=== PATIENT | male | born 1970 | race Caucasian/White ===

== ENCOUNTER 2016-09-02 23:28 | Inpatient (IN) ==
[2016-09-02] MEDS ORDERED: D50W SYRINGE ONE (23:42)
[2016-09-02] MEDS ORDERED: D50W SYRINGE IV ONE (23:46)
[2016-09-02 23:55] LABS: MANUAL DIFF NEEDED? NO
[2016-09-02 23:57] LABS: BASO% 0.2 % (0.0-0.8); EOS# 0.24 X1000 (0.0-0.7); HEMATOCRIT 44.7 % (42.0-52.0); HEMOGLOBIN 15.8 g/dL (14.0-18.0); IMM GRAN# 0.02 X1000 (0.0-0.04); IMM GRAN% 0.2 % (0.0-0.5); LYMPH# 2.96 X1000 (1.2-3.4); LYMPH% 36.6 % (20.5-51.1); MCH 30.6 PG (27-31); MCHC 35.3 g/dL (33-37); MCV 86.5 FL (81-99); MONO# 0.85 X1000 (0.11-0.59); MONO% 10.5 % (1.7-9.3); MPV 11.7 FL (7.4-10.4); NEUT% 49.5 % (42.2-75.2); PLT 163 X1000 (130-400); RBC 5.17 XMIL (4.7-6.1)
--- NOTE | 2016-09-02 23:58 | PROVIDER DOCUMENTATION ---
HPI-General Adult - General Chief Complaint: Stroke-Like Symptoms Stated Complaint: GENERAL Time Seen by Provider: 09/02/16 23:45 Source: patient, other (girlfriend) Allergies/Adverse Reactions: Patient Allergies Allergy/AdvReac Type Severity Reaction Status Date / Time No Known Allergies Allergy Verified 09/02/16 23:44 Home Medications: Home Medication List Medication Instructions Recorded Confirmed Last Taken Type No Home Medications 09/02/16 09/02/16 Unknown History - History of Present Illness -Gen Adult Nature of Presenting Problems: Pt is a 46 yom who presents to ER via EMS after experiencing stroke like symptoms. Pt's girlfriend reports that at approximately 2130, pt began to feel weak, got up to go to the bathroom and stumbled on his way, and girlfriend then noticed pt had mild L facial droop and called EMS. Pt reports that he is a recovering alcoholic and goes to AA meeting regularly. On exam, pt was also hypoglycemic (blood sugar of 60). Location of Pain/Injury: reports: face (L facial numbness) Pain Radiation: reports: arm(s) (L arm) Quality of Pain: reports: other (numbness) Severity: reports: severe Onset/Duration: reports: 1-3 hours ago Timing: reports: still present, improving Context/Activities at Onset: reports: light activity Associated Symptoms: reports: arm pain (L arm numbness), dizziness, fatigue, sensory/motor loss (L facial numbness; L arm numbness), weakness, trouble walking. denies: anxiety, back/neck pain, chest pain, constipation, cough, diaphoresis, diarrhea, EENT symptoms, fever/chills, genitourinary problems, headaches, heartburn, joint pain, loss of appetite, malaise, muscle aches, sinus congestion/drainage, nausea, rash, seizure, shortness of breath, pain with inspiration, swelling/mass in abdomen, syncope (near-syncope), vomiting Review of Systems - Adult - REVIEW OF SYSTEMS - ADULT Constitutional: reports: mariel. denies: chills, fever, night sweats, weight gain, weight loss Eyes: reports: no symptoms reported Ears, Nose, Mouth & Throat: reports: no symptoms reported Cardiovascular: denies: chest pain, edema, heart murmur, irregular heart rate, orthopnea, palpitations, poor circulation, PND, syncope Respiratory: denies: chronic cough, cough, dyspnea on exertion, excessive sputum production, hemoptysis, pleurisy, shortness of breath, wheezing Gastrointestinal: denies: abdominal pain, hematemesis, constipation, diarrhea, difficulty swallowing, frequent heartburn, nausea, poor appetite, rectal bleeding, vomiting Genitourinary: reports: no symptoms reported Musculoskeletal: reports: muscle weakness. denies: bone pain, back pain, frequent leg cramps, joint pain, joint swelling, muscle aches, neck pain Integumentary: reports: no symptoms reported Neurological: reports: dizziness/vertigo, numbness (L facial; L arm), slurred speech. denies: ataxia, headache/migraines, loss of balance, paresthesia, seizure, syncope (near-syncope), tremors Psychiatric: reports: no symptoms reported Endocrine: reports: no symptoms reported Hematologic/Lymphatic: reports: no symptoms reported Allergic/Immunologic: reports: no symptoms reported All Other Systems: Reviewed and Negative Past History - Adult - PAST MEDICAL HISTORY-ADULT Review of Records: reports: Nursing Assessment Review, Medications Reviewed - IMMUNIZATION STATUS Childhood Immunizations: See Nurse Assessment Flu Vaccine: See Nurse Assessment Physical Exam-General - PHYSICAL EXAM-ADULT Initial Vital Signs Reviewed: Yes - CONSTITUTIONAL General Appearance: alert, moderate distress, lethargic. negative: appears well , no apparent distress, mild distress, severe distress, cachetic, obese, thin, anxious, slow to respond, obtunded, combative - RESPIRATORY Respiratory: chest non-tender, lungs clear, normal breath sounds. negative: respiratory distress, decreased breath sounds, accessory muscle use, wheezing - CARDIOVASCULAR Cardiovascular: normal peripheral pulses, bradycardia (mild (56)). negative: regular rate, rhythm, irregularly irregular - GASTROINTESTINAL (ABDOMEN) Abdominal Exam: normal bowel sounds, non tender, soft. negative: abnormal bowel sounds, distended, tenderness, mass - NEUROLOGIC Neurologic: grossly normal, no motor/sensory deficits, facial droop (L facial droop), sensory deficit (L face numb; L arm numb). negative: focal weakness, motor weakness - PSYCHIATRIC Psych/Mental Status: normal thought content, normal thought process, oriented x 3, disheveled, depressed affect. negative: normal mood/affect, disoriented x 3 , anxious, paranoid, tearful Progress - PLAN OF CARE/RESULTS Progress/Plan/Lab Results: POC: CT Vital Signs - 24 hr 09/02/16 09/03/16 23:31 00:07 Temperature 97.1 F L Pulse Rate 60 60 Respiratory 20 14 Rate Blood Pressure 142/89 150/91 O2 Sat by Pulse 98 96 Oximetry Orders Category Date Time Status Cardiac Monitoring DIRECTED Care 09/02/16 23:47 Active Misc. NRSG Communication Order DIRECTED Care 09/02/16 23:47 Active CHEST-PORTABLE [RAD] Stat Exams 09/02/16 23:47 Taken HEAD W/O CONTRAST [CT] Stat Exams 09/02/16 23:35 Taken CBC WITH ELECTRONIC DIFF [HEME] Stat Lab 09/02/16 23:46 Completed COMPREHENSIVE METABOLIC PANEL [CHEM] Stat Lab 09/02/16 23:46 Completed PROTIME WITH INR [COAG] Stat Lab 09/02/16 23:46 Completed PTT [COAG] Stat Lab 09/02/16 23:46 Completed TROPONIN T Stat Lab 09/02/16 23:46 Completed URINALYSIS W/POSS RFLX CULT [URINALYSIS] Stat Lab 09/03/16 00:14 Completed URINE DRUG SCREEN Stat Lab 09/03/16 00:14 Completed Aspirin Med 09/03/16 00:25 Discontinued 325 mg PO NOW ONE Dextrose 50% Syringe [D50w Syringe] Med 09/02/16 23:42 Discontinued 50 ml .ROUTE .STK-MED ONE Dextrose 50% Syringe [D50w Syringe] Med 09/02/16 23:46 Discontinued 50 ml IV NOW ONE EKG [EKG] Stat Ther 09/02/16 23:34 Ordered Laboratory Tests 09/02/16 09/02/16 09/02/16 23:38 23:46 23:46 WBC RBC Hgb Hct MCV MCH MCHC RDW Std Deviation Plt Count MPV Immature Gran % (Auto) Neut % (Auto) Lymph % (Auto) [place] % (Auto) Eos % (Auto) Baso % (Auto) Immature Gran # (Auto) Neut # (Auto) Lymph # (Auto) [place] # (Auto) Eos # (Auto) Baso # (Auto) PT INR PTT (Actin FS) Sodium 138 Potassium 3.5 Chloride 100 Carbon Dioxide 25 Anion Gap 13 BUN 14 Creatinine 0.8 Estimated GFR/1.73 m2 > 60 BUN/Creatinine Ratio 18 Glucose 94 POC Glucose 60 L Calculated Osmolality 276 Calcium 8.7 L Total Bilirubin 0.38 AST 53 H ALT 84 H Alkaline Phosphatase 103 Troponin T < 0.010 Total Protein 6.5 Albumin 4.1 Globulin 2.4 Albumin/Globulin Ratio 1.7 Urine Source Urine Color Urine Turbidity Urine pH Ur Specific [place] Urine Protein Ur Glucose (Stick) Ur Ketones (Stick) Urine Blood Urine Nitrite Urine Bilirubin Urobilinogen Dipstick Urine Leukocytes Urine WBC (Auto) Urine RBC (Auto) U Epithel Cells (Auto) Urine Bacteria (Auto) Urine Opiates Screen Ur Oxycodone Screen Ur Methadone, Qual Ur Barbiturates Screen Ur Phencyclidine Scrn Ur Amphetamines Screen U Benzodiazepines Scrn Urine Cocaine Screen U Cannabinoids Screen 09/02/16 09/02/16 09/03/16 23:46 23:46 00:14 WBC 8.09 RBC 5.17 Hgb 15.8 Hct 44.7 MCV 86.5 MCH 30.6 MCHC 35.3 RDW Std Deviation 13.5 Plt Count 163 MPV 11.7 H Immature Gran % (Auto) 0.2 Neut % (Auto) 49.5 Lymph % (Auto) 36.6 [place] % (Auto) 10.5 H Eos % (Auto) 3.0 Baso % (Auto) 0.2 Immature Gran # (Auto) 0.02 Neut # (Auto) 4.00 Lymph # (Auto) 2.96 [place] # (Auto) 0.85 H Eos # (Auto) 0.24 Baso # (Auto) 0.02 PT 10.2 INR 0.96 PTT (Actin FS) 27.9 Sodium Potassium Chloride Carbon Dioxide Anion Gap BUN Creatinine Estimated GFR/1.73 m2 BUN/Creatinine Ratio Glucose POC Glucose Calculated Osmolality Calcium Total Bilirubin AST ALT Alkaline Phosphatase Troponin T Total Protein Albumin Globulin Albumin/Globulin Ratio Urine Source CLEAN CATCH Urine Color YELLOW Urine Turbidity CLEAR Urine pH 6.5 Ur Specific [place] 1.025 Urine Protein NEGATIVE Ur Glucose (Stick) 1000 A Ur Ketones (Stick) 20 A Urine Blood NEGATIVE Urine Nitrite NEGATIVE Urine Bilirubin NEGATIVE Urobilinogen Dipstick 3 A Urine Leukocytes NEGATIVE Urine WBC (Auto) <10 Urine RBC (Auto) <10 U Epithel Cells (Auto) <10 Urine Bacteria (Auto) NEGATIVE Urine Opiates Screen Ur Oxycodone Screen Ur Methadone, Qual Ur Barbiturates Screen Ur Phencyclidine Scrn Ur Amphetamines Screen U Benzodiazepines Scrn Urine Cocaine Screen U Cannabinoids Screen 09/03/16 09/03/16 00:14 00:53 WBC RBC Hgb Hct MCV MCH MCHC RDW Std Deviation Plt Count MPV Immature Gran % (Auto) Neut % (Auto) Lymph % (Auto) [place] % (Auto) Eos % (Auto) Baso % (Auto) Immature Gran # (Auto) Neut # (Auto) Lymph # (Auto) [place] # (Auto) Eos # (Auto) Baso # (Auto) PT INR PTT (Actin FS) Sodium Potassium Chloride Carbon Dioxide Anion Gap BUN Creatinine Estimated GFR/1.73 m2 BUN/Creatinine Ratio Glucose POC Glucose 103 D Calculated Osmolality Calcium Total Bilirubin AST ALT Alkaline Phosphatase Troponin T Total Protein Albumin Globulin Albumin/Globulin Ratio Urine Source Urine Color Urine Turbidity Urine pH Ur Specific [place] Urine Protein Ur Glucose (Stick) Ur Ketones (Stick) Urine Blood Urine Nitrite Urine Bilirubin Urobilinogen Dipstick Urine Leukocytes Urine WBC (Auto) Urine RBC (Auto) U Epithel Cells (Auto) Urine Bacteria (Auto) Urine Opiates Screen NONE DETECTED Ur Oxycodone Screen NONE DETECTED Ur Methadone, Qual NONE DETECTED Ur Barbiturates Screen NONE DETECTED Ur Phencyclidine Scrn NONE DETECTED Ur Amphetamines Screen NONE DETECTED U Benzodiazepines Scrn NONE DETECTED Urine Cocaine Screen NONE DETECTED U Cannabinoids Screen NONE DETECTED - REASSESSMENT Reassessment #1 Time Reassessed: 00:42 Status: other (Pt reports that his L eye is not back to normal; L side of face is still partially numb; Speech is almost back to complete baseline) - EKG 1 Time of EKG reading by physician:: 23:35 EKG Read and Signed by:: Omid Negrete EKG Interpretation (*Must complete 3 of following elements*): Normal Rate: 62 Rhythm: NSR - CT/MRI 1 CT Study: Head Impression: See EMR Report CT Results: Normal noncontrast head CT - CONSULTS/PCP/HOSPITALIST Notification #1 *Consult/PCP/Hospitalist*: Dr. Redman (Hospitalist) Time Discussed: 00:58 Consult Disposition: Admit Departure - Departure Time of Disposition Order: 00:59 Disposition: ADMITTED INPATIENT 09 Certified Medical Emergency: Emergent Attestation - Scribe Verification/Attestation Scribe:: Ramiro Boles Acting as Scribe for:: Omid Negrete Scribe documention review:: This chart was documented by a scribe and accurately reflects the service the provider performed and the decisions made by the provider.
[2016-09-03 00:17] LABS: INR 0.96; PROTIME 10.2 Seconds (9.2-11.7); PTT 27.9 Seconds (22.0-36.0)
[2016-09-03 00:23] LABS: URINE CULTURE NEEDED? NO; URINE MICRO REVIEW NEEDED? NO; URINE SOURCE CLEAN CATCH
[2016-09-03] MEDS ORDERED: ASPIRIN PO ONE (00:25)
[2016-09-03 00:41] LABS: AGAP 13; ALBUMIN 4.1 g/dL (3.5-5.0); ALKALINE PHOSPHATASE 103 U/L (32-122); BUN 14 mg/dL (8-22); CALCIUM 8.7 mg/dL (8.8-10.2); CHLORIDE 100 mmol/L (98-107); COSMO 276; GOT 53 U/L (10-34); GPT 84 U/L (10-44); POTASSIUM 3.5 mmol/L (3.5-5.1); SODIUM 138 mmol/L (136-145); TCO2 25 mmol/L (25-35); TOTAL BILIRUBIN 0.38 mg/dL (0.20-1.00); TOTAL PROTEIN 6.5 g/dL (6.3-8.3)
[2016-09-03 00:44] LABS: UR AMPHETAMINES QUAL NONE DETECTED (NONE DETECT); UR BARBITUATES QUAL NONE DETECTED (NONE DETECT); UR BENZODIAZEPIN QUAL NONE DETECTED (NONE DETECT); UR CANNABINOIDS QUAL NONE DETECTED (NONE DETECT); UR COCAINE QUAL NONE DETECTED (NONE DETECT); UR METHADONE QUAL NONE DETECTED (NONE DETECT); UR OPIATES QUAL NONE DETECTED (NONE DETECT); UR OXYCODONE QUAL NONE DETECTED (NONE DETECT); UR PCP QUAL NONE DETECTED (NONE DETECT)
[2016-09-03 00:48] LABS: BILIRUBIN URINE NEGATIVE (NEGATIVE); BLOOD URINE NEGATIVE (NEGATIVE); COLOR YELLOW; GLUCOSE URINE 1000 mg/dL (NEGATIVE); LEUKOCYTES URINE NEGATIVE (NEGATIVE); NITRITE URINE NEGATIVE (NEGATIVE); PH URINE 6.5; PROTEIN URINE NEGATIVE (NEGATIVE); SP GRAVITY URINE 1.025; TURBIDITY URINE CLEAR (CLEAR); UR EPITHELIAL CELLS <10 /HPF (<10); URINE BACTERIA NEGATIVE /HPF; URINE RBC <10 /HPF (<10); URINE WBC <10 /HPF (<10); UROBILINOGEN URINE 3 mg/dL (NORMAL)
[2016-09-03] MEDS ORDERED: ZOFRAN IV PRN (05:40)
[2016-09-03 06:14] LABS: MANUAL DIFF NEEDED? NO
[2016-09-03 06:19] LABS: BASO% 0.3 % (0.0-0.8); EOS# 0.28 X1000 (0.0-0.7); EOS% 4.4 % (0.0-10.0); HEMATOCRIT 44.8 % (42.0-52.0); HEMOGLOBIN 15.5 g/dL (14.0-18.0); LYMPH# 2.81 X1000 (1.2-3.4); LYMPH% 43.8 % (20.5-51.1); MCH 30.3 PG (27-31); MCHC 34.6 g/dL (33-37); MCV 87.5 FL (81-99); MONO# 0.64 X1000 (0.11-0.59); MPV 11.9 FL (7.4-10.4); NEUT% 41.5 % (42.2-75.2); PLT 162 X1000 (130-400); RBC 5.12 XMIL (4.7-6.1)
[2016-09-03] MEDS: LOVENOX SUBQ SCH (06:36)
[2016-09-03 06:39] LABS: AGAP 11; BUN 12 mg/dL (8-22); CALCIUM 8.4 mg/dL (8.8-10.2); CHLORIDE 102 mmol/L (98-107); COSMO 275; POTASSIUM 3.8 mmol/L (3.5-5.1); SODIUM 138 mmol/L (136-145); TCO2 25 mmol/L (25-35)
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
--- NOTE | 2016-09-03 07:42 | Diag Imaging Result Document ---
PROCEDURE NAME: CHEST-PORTABLE - 09/02/2016 PORTABLE CHEST: FINDINGS: The lungs are well expanded. The heart is not enlarged. The vessels are not distended. No pneumonia. No pleural effusions identified. IMPRESSION: Negative chest.
--- NOTE | 2016-09-03 07:49 | Diag Imaging Result Document ---
PROCEDURE NAME: HEAD W/O CONTRAST - 09/02/2016 CT BRAIN WITHOUT CONTRAST: TECHNIQUE: Dose-reduction protocol. FINDINGS: No parenchymal hemorrhage. No epidural or subdural hematoma. No subarachnoid hemorrhage. No mass identified on this noncontrasted exam. No hydrocephalus. No sinus opacification. No air fluid levels. IMPRESSION: No hemorrhage. Negative brain CT without contrast. A preliminary report was given at 12:12 a.m.
[2016-09-03] MEDS: ASPIRIN PO SCH (09:58)
--- NOTE | 2016-09-03 15:26 | PROGRESS NOTE ---
DATE: 09/03/2016 SUBJECTIVE: The patient complained having headache and still having the same tingling and numbness on his right face and right side. OBJECTIVE: Vital signs: Blood pressure 114/72, pulse of 56, respiration 18, temperature 97.6 degrees, saturations of 95% room air. General appearance: Well-developed, well-nourished white male in no acute distress. HEENT: Anicteric. Clear conjunctivae. Neck: Supple. No JVD. No bruit. Cardiovascular: S1, S2. Normal rate and rhythm. No murmur, rubs, or gallops. Pulmonary: Clear to auscultation bilaterally. GI: Soft, nontender, nondistended. Normoactive bowel sounds. Musculoskeletal: No clubbing, cyanosis or edema. Neuro exam: Cranial nerves 2- 12 are grossly intact. The patient has mild decreased sensation on the left side his body. Strength equal on both sides. No tongue deviation. LABORATORY: Were reviewing were normal. ASSESSMENT AND PLAN: This is a 46-year-old admitted to the hospital for left side tingling or numbness. Left side tingling and numbness. The CAT scan was negative for any acute process. MRI of the brain is still pending. The patient complains having headache. Most likely the patient is having a complex migraine. However will continue to proceed with MRI of the brain. Will continue supportive care for now. Encourage ambulation. CODE STATUS: The patient is a full code.
--- NOTE | 2016-09-03 17:19 | CONSULTATION ---
DATE OF CONSULTATION: 09/03/2016 CONSULTATION TO: Dr. Feroz Valentine. Thank you very much for asking me to see this very unfortunate 46-year-old male white. DIAGNOSES: 1. Chronic obstructive pulmonary disease. 2. Observed apneas possibly secondary to obstructive sleep apnea versus medications. 3. Previous transient ischemic attack. RECOMMENDATIONS: Order a bronchodilator test as well as supplemental oxygen and I will notify Dr. Covington of his potential need for sleep apnea workup. Will follow closely along with you. HISTORY: Very pleasant 46-year-old male white presents with some shortness of breath, weakness and confusion on the and subsequently he is admitted and I am consulted to assist in his care. The families do observe some apneas although this may be sedative related. He has some snoring also. SOCIAL HISTORY: He is a smoker. He is a recovering drinker. PAST MEDICAL HISTORY: Is positive for COPD, hypertension at home. REVIEW OF SYSTEMS: Are negative on 14 point review. FAMILY HISTORY: Positive for ischemic heart disease as well as hypertension in his father, hypertension in his mother. PHYSICAL EXAMINATION: Vital Signs: This unfortunate male white shows a blood pressure of 114/72 with a pulse of 56, respirations 18, temperature 97.6 degrees. HEENT: Exam reveals no thyromegaly or adenopathy. Pupils are equal and extraocular muscles are intact. Neck: Supple. Chest: Tympanitic, hyperinflated with some prolongation of expiratory phase. There is forced expiratory wheezes. Symmetrical excursions are noted. Cardiac Exam: Reveals a regular rhythm. Abdomen: Soft, nontender. No hepatosplenomegaly. Extremities: Reveal no evidence cyanosis. DATA: The chest radiograph shows some obesity and some hyperinflation. Sodium is 138, potassium 3.8, chloride 102, CO2 25, BUN 12, creatinine 0.7, glucose 91. White count 6200 with a hemoglobin 14.5, hematocrit of 44.8, platelets 162,000. IMPRESSION: 1. Chronic obstructive pulmonary disease. 2. Obstructive sleep apnea likely. 3. Possible sedative worsening of this. 4. Substance abuse. 5. Transient ischemic attack. As mentioned above will give him bronchodilators, supplemental oxygen and determine whether polysomnography is necessary.
[2016-09-04 06:28] LABS: MANUAL DIFF NEEDED? NO
[2016-09-04] MEDS: LOVENOX SUBQ SCH (06:46)
[2016-09-04 06:51] LABS: AGAP 10; BUN 10 mg/dL (8-22); CALCIUM 8.3 mg/dL (8.8-10.2); CHLORIDE 104 mmol/L (98-107); COSMO 276; POTASSIUM 4.3 mmol/L (3.5-5.1); SODIUM 139 mmol/L (136-145); TCO2 25 mmol/L (25-35)
[2016-09-04 06:59] LABS: BASO% 0.4 % (0.0-0.8); EOS# 0.19 X1000 (0.0-0.7); EOS% 3.6 % (0.0-10.0); HEMATOCRIT 46.9 % (42.0-52.0); HEMOGLOBIN 15.9 g/dL (14.0-18.0); LYMPH# 2.14 X1000 (1.2-3.4); LYMPH% 40.5 % (20.5-51.1); MCH 30.1 PG (27-31); MCHC 33.9 g/dL (33-37); MCV 88.7 FL (81-99); MONO# 0.62 X1000 (0.11-0.59); MONO% 11.7 % (1.7-9.3); MPV 11.8 FL (7.4-10.4); NEUT% 43.8 % (42.2-75.2); PLT 135 X1000 (130-400); RBC 5.29 XMIL (4.7-6.1)
[2016-09-04 08:22] LABS: ALLEN TEST YES; BE 4.1 mmoll (-3.0-3.0); BLOOD TYPE ARTERIAL; DRAW SITE R RADIAL; METHB 1.7 % (0.0-1.5); O2(CT) 21.1 mL/dL (15.0-23.0); PCO2(98.6) 44 mmHg (35-45); PO2(98.6) 83 mmHg (60-100); SAMPLE BLOOD; SAO2 99.1 % (95.0-100.0); THB 16.2 g/dL (11.5-17.4); pH(98.6) 7.43 (7.35-7.45)
[2016-09-04 08:23] LABS: MODALITY ROOM AIR
[2016-09-04] MEDS: ASPIRIN PO SCH (08:23)
--- NOTE | 2016-09-04 09:26 | EKG Report ---
Test Performed on : 09/02/2016 11:35:24 PM Test Reason : STROKE LIKE SYMPTOMS Blood Pressure : / mmHG Vent. Rate : 062 BPM Atrial Rate : 062 BPM P-R Int : 150 ms QRS Dur : 090 ms QT Int : 434 ms P-R-T Axes : 026 002 024 degrees QTc Int : 440 ms Normal sinus rhythm. Normal ECG No previous ECGs available Unconfirmed Result
--- NOTE | 2016-09-04 09:59 | Carotid Study ---
DATE: 09/03/2016 PROCEDURE: Carotid duplex imaging. REFERRING PHYSICIAN: IVANIA Gu INTERPRETING PHYSICIAN: Dr. Valdes TECH: Yvonne Mackenzie RVT INDICATIONS: CVA/stroke (ICD-10 I63.50) OBSERVED DATA RIGHT LEFT Brachial Blood Pressure Carotid Pulse Bruits: Carotid/Sub DIAGRAM OF ULTRASOUND IMAGING R L RIGHT INT EXT INT EXT LEFT Eyad (cm/s) Eyad (cm/s) Subclavian 117/1 Subclavian 117/0 CCA Proximal 114/17 CCA Proximal 101/17 CCA Distal 88/21 CCA Distal 92/15 Bulb 69/16 Bulb 73/17 ICA Proximal 47/15 ICA Proximal 65/21 ICA Mid 60/23 ICA Mid 80/37 ICA Distal 73/29 ICA Distal 67/31 ECA 70/10 ECA 78/9 Vertebral 40/14 Vertebral 51/12 ICA/CCA Ratio 0.64 ICA/CCA Ratio 0.79 % Stenosis 0 to 39 % Stenosis 0 to 39 PHYSICIAN INTERPRETATION: Mild atherosclerotic disease of the distal common and internal carotid arteries bilaterally without evidence of a hemodynamically significant lesion in either carotid system.
--- NOTE | 2016-09-04 11:14 | Diag Imaging Result Document ---
PROCEDURE NAME: MRI BRAIN W W/O CONTRAST - 09/04/2016 MRI OF THE BRAIN: FINDINGS: There is no evidence of mass effect, bleed, or abnormal extra-axial fluid collection. There is no evidence of restricted diffusion. There is a small focus of abnormal gadolinium enhancement in the right temporal tip measuring 4 x 8 mm extending in somewhat a linear fashion. There is no associated edema and this abnormality is only visible on the post gadolinium enhanced T1-weighted images. IMPRESSION: Small abnormal focus of gadolinium enhancement in the right temporal lobe. Otherwise, no evidence of acute disease. Follow-up MRI imaging with and without gadolinium may be desirable to establish the stability or resolution of this finding.
[2016-09-04] MEDS ORDERED: NICODERM PATCH TD PRN (15:11)
--- NOTE | 2016-09-04 15:29 | CONSULTATION ---
DATE OF CONSULTATION: 09/04/2016 HISTORY OF PRESENT ILLNESS: Mr. Reaves is a young man with a recent episode and question of neurologic explanation. 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 He got out of bed quickly, took a few steps, collapsed. He was never unconscious and never had altered awareness or memory gap. Within 10 minutes he was able to get himself up and walk unassisted. He presented to the emergency room. 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 Patient reports a sense of "cloud" over his entire head and a cloud in his vision at home but there was never any focal feature. Patient specifically denies noticing facial drooping or one-sided facial numbness at onset. Today, patient does have slight sense of left-sided facial numbness. There is no previous history of stroke, seizure, other collapse or other neurologic event. He has not had recent head injury. He has a past history of illicit drug use but reports "clean for 9 months." Urine drug screen was all negative this admission. He specifically denies using any illicit substance recently. He does not take any medications. Review of computer record shows nothing remarkable on the lab work. He has been afebrile. Systolic blood pressures have ranged from 100s to 150s. Noncontrast CT of the head was reported unremarkable. On exam, Mr. Reaves is awake, alert, attentive, appropriate, oriented. Speech and language function are intact. Memory is good. Head and neck are unremarkable. Visual sinclair are full tested grossly by confrontational finger counting. Extraocular movements are full. Facial motility is symmetric. He reports equal pinprick and light touch appreciation on careful testing over the face. Gag is intact. Tongue is midline. Hearing is good. Shoulder shrug is equal. Strength is normal in the arms and legs. He did well on [id number] testing bilaterally. I did not test his gait. He reports good proprioception throughout. Sensation is intact on pinprick and light touch testing over the limbs. Reflexes are 1+ at the wrists and ankles symmetrically. Plantar response is silent bilaterally. IMPRESSION: Episode of collapse without definite neurologic explanation. There is report of transient left facial drooping but no other indication of central nervous system events. Negative CT is reassuring but would not exclude acute ischemic stroke. I believe that he has had brain MRI this morning and I will check on that report when available. I do not have any other suggestion right now. Thanks for asking me to see Mr. Reaves. MTDD
--- NOTE | 2016-09-04 17:01 | PROGRESS NOTE ---
DATE: 09/04/2016 SUBJECTIVE: The patient states that he is feeling much better. He is not having any kind of weakness right now. He feels a little bit of numbness on the right cheek, but otherwise he is feeling better. Family members at the bedside. OBJECTIVE: Vital Signs: Temperature 98.2 degrees, pulse 63, respiratory rate 18, blood pressure 118/73, O2 saturation 97% on room air. HEENT: Head normocephalic. No trauma. PERRLA. Neck: Supple. No JVD. No masses. Central trachea. Chest: Clear to auscultation. No wheezing. No rales. Abdomen: Soft, nontender, nondistended. No hepatosplenomegaly. Cardiovascular: RRR. No murmurs. No gallops. No rubs. Extremities: No edema. No clubbing. No cyanosis. Neurological Examination: The patient is alert and oriented x3. No focal neurological deficits. LABORATORY: WBC 5.2, hemoglobin 15.9, hematocrit 46.9, platelets 135,000. Sodium 139, potassium 4.3, chloride 104, bicarbonate 25, BUN 10, creatinine 0.7, glucose 90, hemoglobin A1c 5, calcium 8.3. ASSESSMENT AND PLAN: 1. Transient ischemic attack versus migraine: This patient states that every time he is in a stressful situation he feels some kind of pressure over his head. This is the first time that he has severe symptoms but he was having these kind of symptoms before. Neurology Department is on board. They already evaluated this patient. I do not see any acute abnormality in the CT scan or MRI and the lab work is completely normal. I will wait for the final recommendations of the Neurology Department. Probably this patient can be discharged either today in the afternoon or tomorrow morning. 2. Obstructive sleep apnea. Dr. Covington is on board. Probably this patient needs a sleep study as an outpatient. 3. Tobacco use and abuse. Actually this patient is smoking even during his hospitalization, the last cigarette was today. I have been highly advising this patient about quitting smoking. I will continue with daily cessation education. I will put this patient on a nicotine patch. 4. Transaminitis. AST and LAD are a little bit elevated, we will continue to monitor.
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
[2016-09-04] MEDS: CENTRUM SILVER PO SCH (18:05)
[2016-09-04] MEDS: PROTONIX IV SCH (20:27)
[2016-09-04] MEDS: SODIUM CHLORIDE 0.9% INJ SCH (20:27)
[2016-09-05] MEDS: LOVENOX SUBQ SCH (05:42)
[2016-09-05 06:10] LABS: MANUAL DIFF NEEDED? NO
[2016-09-05 06:15] LABS: BASO% 0.5 % (0.0-0.8); EOS# 0.27 X1000 (0.0-0.7); EOS% 4.8 % (0.0-10.0); HEMATOCRIT 47.2 % (42.0-52.0); HEMOGLOBIN 16.2 g/dL (14.0-18.0); LYMPH# 2.09 X1000 (1.2-3.4); LYMPH% 37.3 % (20.5-51.1); MCH 30.5 PG (27-31); MCHC 34.3 g/dL (33-37); MCV 88.9 FL (81-99); MONO# 0.67 X1000 (0.11-0.59); MPV 11.4 FL (7.4-10.4); NEUT% 45.4 % (42.2-75.2); PLT 142 X1000 (130-400); RBC 5.31 XMIL (4.7-6.1)
[2016-09-05 06:54] LABS: AGAP 8; BUN 14 mg/dL (8-22); CALCIUM 9.2 mg/dL (8.8-10.2); CHLORIDE 105 mmol/L (98-107); COSMO 285; SODIUM 143 mmol/L (136-145); TCO2 30 mmol/L (25-35)
[2016-09-05 07:44] VITALS: BP 123/67
[2016-09-05] MEDS: CENTRUM SILVER PO SCH (08:35)
[2016-09-05] MEDS: ASPIRIN PO SCH (08:36)
[2016-09-05] MEDS: PROTONIX IV SCH (08:36)
[2016-09-05] MEDS: SODIUM CHLORIDE 0.9% INJ SCH (08:36)
[2016-09-05 12:11] LABS: HEPATITIS PROFILE ACUTE SEE COMMENTS (())
--- NOTE | 2016-09-05 12:43 | PROGRESS NOTE ---
DATE: 09/05/2016 SUBJECTIVE: Mr. Reaves has not had any more episodes. He reports left side of the face is feeling more like normal. He reports there is still slight "bruised" sensation across the left face. OBJECTIVE: On careful exam, there is normal facial motility, full extraocular movements, normal eye lid movement, normal forehead wrinkling, and this is all symmetric. He reports equal pinprick and light touch appreciation over the left and right face. Gag is intact. Tongue is midline. We discussed the very uncertain MRI findings. I suggested that he consider having repeat MRI electively, possibly in 3-6 months, sooner if he has more episodes. I will be glad for my office to arrange that scan as an outpatient, if needed. I do not have any other suggestion today. Thanks for asking me to see Mr. Reaves. [facility]
[2016-09-05] MEDS ORDERED: AUGMENTIN PO SCH (21:00)
--- NOTE | 2016-09-06 04:34 | DISCHARGE SUMMARY ---
ADMISSION DATE: 09/03/2016 DISCHARGE DATE: 09/05/2016 CONSULTATIONS: 1. Ania Helms III, MD with Neurology 2. Harley Alves MD with Gastroenterology. PERTINENT PROCEDURES: 1. Head CT showed no hemorrhage. Negative CT without contrast. 2. Brain MRI showed small abnormal focus of an enhancement in the right temporal lobe. Otherwise no evidence of acute disease. 3. Carotid Dopplers showed mild atherosclerotic disease of the distal common and internal carotid arteries bilaterally without evidence of a hemodynamically significant lesion in either carotid system. DISCHARGE DIAGNOSES: 1. Transient ischemic attack versus migraine. Being followed by Neurology. They suggested repeat MRI electively in possibly 3-6 months or sooner if he has any more episodes and will follow up with Neurology in 6 months. 2. Obstructive sleep apnea. The patient will need outpatient sleep study. 3. Tobacco use and abuse. The patient was smoking even during his hospitalization. The patient has highly been incised to quit smoking as well as the means to quit and daily cessation education was given. 4. Transaminitis. 5. History of alcoholism. Patient quit 9 months ago. Encouraged to stay abstinent from alcohol and take a multivitamin every day. 6. Gastroesophageal reflux disease. Patient to start Prilosec eyew-jue-dcxeags twice daily. Follow up with Dr. Alves in 1 week and plan for esophagogastroduodenoscopy. 7. In reference to transaminitis, Gastroenterology did check a hepatitis panel and they will follow up with him in 1 week. HOSPITAL COURSE: Briefly, Mr. Reaves is a 46-year-old male with a history of previous drug abuse, alcohol abuse, as well as tobacco abuse and use, who experienced left-sided facial tingling and numbness. The numbness went into his hair. He also complained of left-sided facial droop and weakness which caused him to stumble as he went to the bathroom. Upon arrival to the emergency room, his symptoms resolved. The patient did mention that he was a recovering alcoholic and drug abuser and that he frequently attends AA meetings. CT scan did not show any acute intracranial processes. The patient was admitted for a TIA with a Neurology consult. In reference to his transaminitis, GI was consulted. They did check a hepatitis panel. The patient will follow up with GI in [address] Helms did discuss the very uncertain MRI finding with the patient and suggested that he consider repeating the MRI electively in possibly 3-6 months or sooner if he has more episodes and that he would see him in his office in 6 months. Mr. Reaves is being discharged from the hospital today. Temperature is 97.9 degrees, heart rate 74, respirations 16, blood pressure 123/67, O2 is 97% on room air. DISCHARGE DIET: Regular. DISCHARGE MEDICATIONS: 1. Aspirin 81 mg p.o. daily. 2. Augmentin 875 mg p.o. q.12 hours for 7 days for sinusitis. 3. Centrum Silver 1 each p.o. daily. 4. Pepcid p.o. twice daily. FOLLOWUP: Patient is being discharged home. He can follow up with Dr. Ania Helms in 6 months. Consider obtaining MRI in 3-6 months. He will need to obtain a primary care physician and follow up within 7-10 days. He will need to follow up with Dr. Covington. He will also need to follow up with Dr. Alves in 1 week for EGD. The patient can return to the ED for any worsening of symptoms. He has been strongly advised against smoking cessation, as well as education and the means to quit, and as well as continuing to abstain from alcohol as well as illicit drugs. TIME SPENT: Discharge time was greater than 30 minutes. Dictated by BEBA Rudolph for Frank Gomez MD
[2016-09-06 13:17] LABS: HCV BY PCR SEE COMMENTS (()); HCV CHARGE YES
== END 2016-09-05 13:41 | disposition home or self-care (01) | DRG 103 ==
LOC: ED 23:28 → 4N 09-03 02:34
PROVIDERS: ATTEND Internal Medicine
DX: G43.909 Migraine, unspecified, not intractable, without status migrainosus (principal); G45.9 Transient cerebral ischemic attack, unspecified; R13.10 Dysphagia, unspecified; G93.9 Disorder of brain, unspecified; K21.9 Gastro-esophageal reflux disease without esophagitis; G47.33 Obstructive sleep apnea (adult) (pediatric); R74.0 Nonspecific elevation of levels of transaminase and lactic acid dehydrogenase [LDH]; J44.9 Chronic obstructive pulmonary disease, unspecified; F10.21 Alcohol dependence, in remission; F17.210 Nicotine dependence, cigarettes, uncomplicated; Z86.19 Personal history of other infectious and parasitic diseases; Z82.49 Family history of ischemic heart disease and other diseases of the circulatory system
CPT/HCPCS: 70450; 70553; 71010; 80048; 80053; 80061; 80074; 81001; 82805; 82948; 83036; 83721; 84443; 84484; 85025; 85610; 85730; 87522; 93005; 93880; 96374; A9579; C9113; G0480; J1650; 80320; 80324; 80345; 80346; 80349; 80353; 80358; 80361; 80365; 83992; S0164